=== PATIENT | female | born 2000 | race Caucasian/White ===

== ENCOUNTER 2018-11-13 15:56 | Emergency (ER) | payer SELFPAY ==
[~2018-11-13] VITALS: Ht 170.2 cm; Wt 61.4 kg
[2018-11-13] MEDS ORDERED: IBUPROFEN 800 MG TABLET PO ONE (17:30)
[2018-11-13 17:39] VITALS: BP 114/73
[2018-11-13] MEDS ORDERED: PERTUSS(ACELL),DIPH,TET VAC/PF 0.5 ML VIAL IM ONE (17:45)
== END 2018-11-13 18:37 | disposition home or self-care (01) ==
LOC: EMS 15:56
DX: S51.832A Puncture wound without foreign body of left forearm, initial encounter (principal); S51.851A Open bite of right forearm, initial encounter; S50.812A Abrasion of left forearm, initial encounter; W54.0XXA Bitten by dog, initial encounter; Y93.89 Activity, other specified; Y92.89 Other specified places as the place of occurrence of the external cause; Y99.8 Other external cause status
CPT/HCPCS: 90471; 90715